=== PATIENT | female | born 1980 | race Caucasian/White ===

== ENCOUNTER → 2016-08-04 | Outpatient (CLI) | payer OTHER ==
[~2016-08-04] MED LIST: ALLEGRA ALLERG180 MG PO; FLONASE ALLERG9.9 ML
--- NOTE | ~2016-08-04 | EKG ---
PATIENT: CIARA REVELES UNIT #: [id number] Ventricular Rate: 78 BPM Atrial Rate: 78 BPM P-R Interval: 158 ms QRS Duration: 90 ms Q-T Interval: 392 ms QTC Calculation(Bezet): 446 ms P [place]: 54 degrees Calculated R [place]: 101 degrees Calculated T [place]: 48 degrees Diagnosis Line: Normal sinus rhythm Diagnosis Line: Rightward axis Diagnosis Line: Borderline ECG Diagnosis Line: No previous ECGs available Diagnosis Line: Confirmed by ANITRA BONILLA MD ([id number]) on Diagnosis Line: 08/05/2016 3:57:51 PM INTERPRETING MD: ANDREA
[2016-08-04 09:44] LABS: BUN/CREATININE RATIO 15.71; CALCIUM SERUM 9.9 mg/dL (8.4-10.2); CREATININE SERUM 0.7 mg/dL (0.6-1.4); GLOM FILT RATE Estimated 110.7 mL/min (>60); POTASSIUM 3.8 mmol/L (3.5-5.1)
== END | disposition home or self-care (01) ==
LOC: CAMB 08:00
PROVIDERS: Surgery
DX: Z01.818 Encounter for other preprocedural examination (principal); L72.3 Sebaceous cyst
CPT/HCPCS: 36415; 80048; 93005

== ENCOUNTER → 2016-08-11 | Day surgery (SDC) | payer OTHER ==
--- NOTE | ~2016-08-11 | OR ---
Unit #: [id number] #: [id number] Patient: CIARA REVELES [id number] [address] [address] [id number] MR#: [id number] NAME: CIARA REVELES ROOM: Date of Procedure: 08/11/2016 Admission Date: 08/11/2016 Surgeon: Zaid Prescott M.D. : 1980 Attending Physician: Zaid Prescott M.D. Primary Care Physician: Paolo Stephen M.D. OPERATIVE REPORT PREOPERATIVE DIAGNOSIS Chronically inflamed sebaceous cyst in epigastric area. POSTOPERATIVE DIAGNOSIS Chronically inflamed sebaceous cyst in epigastric area. PROCEDURE PERFORMED Excision of chronically inflamed sebaceous cyst in epigastric area 2 x 2 cm with layered closure. ANESTHESIA General LMA anesthesia with 0.5% Marcaine plain local anesthesia. FINDINGS The area was excised and sent to Pathology. SPECIMENS Sent to Pathology. COMPLICATIONS None apparent. CONDITION The patient tolerated the procedure well. INDICATIONS FOR PROCEDURE The patient is a 36-year-old white female, who presents at this time for excision of her chronically inflamed sebaceous cyst in the epigastric area. It is currently quiet without evidence of infection. DESCRIPTION OF PROCEDURE After obtaining informed consent as well as receiving preoperative antibiotics, the patient was brought to the operating room and after adequate general LMA anesthesia was obtained, had her epigastric area prepped and draped in a sterile fashion. An elliptical incision was made transversely around the area. It was taken down through the skin with a knife and the area was sharply excised circumferentially excising the overlying skin and the cyst completely. Hemostasis was obtained with the Bovie. The area was infiltrated with 0.5% Marcaine plain local anesthesia. The wound was irrigated. The deep tissues were reapproximated with interrupted 3-0 Vicryl suture. The skin was closed with interrupted 4-0 nylon vertical mattress sutures. A dry dressing was Unit #: [id number] #: [id number] Patient: CIARA REVELES applied followed by a Tegaderm dressing. Needle counts, sponge counts, and instrument counts were all correct as reported by the scrub nurse x2. The patient went from the operating room to the recovery room in stable condition. Dictated by... Stefany Doe/aj TD: 08/12/2016 03:39 JOB #: [id number] [facility] OPERATIVE REPORT Page 1 of 1 X Zaid Prescott MD X PROCEDURE OPERATIVE NOTE
== END | disposition home or self-care (01) ==
LOC: CSUR 06:32
DX: L72.0 Epidermal cyst (principal); L08.9 Local infection of the skin and subcutaneous tissue, unspecified; K21.9 Gastro-esophageal reflux disease without esophagitis; J30.2 Other seasonal allergic rhinitis
CPT/HCPCS: 84703; 88304; J2250; J2405; J3010; J3370